=== PATIENT | female | born 1995 | race Caucasian/White ===

== ENCOUNTER 2023-03-26 18:57 | Emergency (ER) | payer MEDICAID, SELFPAY ==
[2023-03-26 19:01] VITALS: BP 178/100; PULSE 106; RESP 22; TEMP 36.7; O2SAT 98; BMI 40.3
[2023-03-26 19:21] VITALS: BP 164/112; PULSE 114; RESP 20; O2SAT 98
[2023-03-26] MEDS: DiphenhydrAMINE 50 MG/ML Syringe IV (20:29)
[2023-03-26 20:31] VITALS: BP 173/110; PULSE 77; RESP 14; O2SAT 98
[2023-03-26 20:37] LABS: ALB/GLOB Ratio 1.1 RATIO (0.9-2.4); AST(SGOT) 9 U/L (15-37); Alanine Aminotransfer ALT/SGPT 15 U/L (13-56); Albumin, Serum 3.7 g/dL (3.2-5.0); Alkaline Phosphatase 65 U/L (45-117); Anion Gap 4 (5-15); BUN 9 mg/dL (7-18); Calcium,Total 8.8 mg/dL (8.5-10.1); Chloride 107 mmol/L (98-107); Creatinine, Serum 0.82 mg/dL (0.55-1.02); EST Glomerular Filtration Rate 88 mL/min (>60); Est Glom Filt Rate - Afr Amer 107 mL/min (>60); Globulin 3.5 g/dL (2.2-4.2); Glucose 130 mg/dL (74-106); Potassium 3.6 mmol/L (3.5-5.1); Protein, Total 7.2 g/dL (6.4-8.2); Sodium Level 137 mmol/L (136-145)
--- NOTE | 2023-03-26 20:46 | EX.ED.DYSGE1 ---
HPI History of Present Illness Chief Complaint: Neuro S/Sx Informant: patient Narrative Narrative: 27-year-old female presenting to the emergency room stating that she is having facial spasms. Patient states for the past year she has had intermittent episodes where her eyes deviate to the right and her jaw gets stuck. She states that she has never received a formal diagnosis. She self diagnosed a stroke a year ago. She states that she is on psychiatric medicines. Communication was had as the patient is writing and handing it to me to read. PFSH PFS Medical History Anxiety Depression Home Medications diphenhydramine HCl 25 mg capsule 25 mg PO TID PRN facial spasm #14 caps 03/26/23 [Rx Last Taken Unknown] Allergy/AdvReac Type Severity Reaction Status Date / Time No Known Allergies Allergy Verified 03/26/23 19:08 Social History Smoking Status: Current every day smoker tobacco type: cigarettes and e-cigarettes ROS ROS ED Constitutional Constitutional ED: Denies chills or weight loss Eyes Eyes: Reports change in vision; Denies diplopia ENT ENT ED: Reports other Details: Facial spasm ; Denies ear pain, rhinorrhea or sore throat Cardiovascular Cardiovascular: Denies chest pain, orthopnea, palpitations or racing heartbeat Respiratory/Chest Respiratory/Chest: Denies cough, dyspnea or orthopnea Gastrointestinal Gastrointestinal: Denies abdominal pain, diarrhea, nausea or vomiting Genitourinary Genitourinary ED: Denies dysuria, hematuria or urinary frequency Musculoskeletal Musculoskeletal: Denies arthralgias or myalgias Integumentary Denies abscess or rash Neurologic Neurologic: Denies headache(s) or weakness Psychiatric Psychiatric: Denies anxiety, depression, suicidal ideation or suicidal thoughts Endocrine Endocrinology: Denies polydipsia, polyphagia or polyuria Allergic/Immunologic Allergic/Immunologic ED: Denies mouth swelling, tongue swelling or urticaria EXAM Physical Exam Const Vital Signs: 03/26/23 19:01 03/26/23 19:21 03/26/23 20:31 Temperature 98.1 F Temperature Source Temporal Pulse Rate 106 H 114 H 77 Respiratory Rate 22 H 20 H 14 Blood Pressure 178/100 H 164/112 H 173/110 H Blood Pressure Mean 126 129 131 Pulse Ox 98 98 98 Oxygen Delivery Method Room Air Room Air Room Air Positive well nourished and well developed General Appearance ED: well developed HEENT Reports normocephalic, head/scalp atraumatic and moist mucous membranes HEENT Narrative: Patient's eyes are deviated to the right. However when I handed her a piece of paper and she starts writing her eyes are normal and she is able to look around the room without difficulty. Her facial is held with her jaw clenched backwards so that she has an overbite. Again as she writes this resolves. I asked her to if she is able to speak she shakes her head no and 30 seconds later is back in the position of her eyes deviated to the right and her jaw clenched. Eyes PERRL and EOMs intact bilaterally Neck no lymphadenopathy, supple and no JVD Resp normal respiratory effort and clear to auscultation bilaterally Cardio regular rate, regular rhythm and no murmurs GI normal to inspection, nondistended, normoactive bowel sounds and non-tender Palpation: soft Back/Spine no CVA tenderness and normal ROM Extremity normal to inspection General Extremety ED: Negative for edema General Extremity: Negative for edema Neuro oriented x3 Sensorium / Orientation: alert Motor Exam: strength 5/5 throughout Psych Psych Narrative: Patient is shaky but can stop on command. Mood & Affect: Negative for depressed or tearful Skin no rashes or lesions noted and no wounds MDM MDM MDM Narrative Medical decision making narrative: CMP demonstrates no obvious electrolyte disturbance. Glucose is 130. Patient received 50 mg of Benadryl. She was observed. Repeat examination she states that she is now fine. She states that oral Benadryl really has never worked for her so she was surprised that IV Benadryl has. She states that she is relocating to [place] and wants to establish primary care. She was advised she may need to see neurology and I would certainly discuss these events with her psychiatrist is conversion disorder certainly is high on the differential. She states that these symptoms were beginning before she started psychiatric medications. History & Record Review Discussion w/independent historian: Patient Lab Data Attestation: I reviewed the patient's lab results. Labs: Laboratory Results - last 24 hr 03/26/23 03/26/23 19:13 19:26 Sodium 137 Potassium 3.6 Chloride 107 Carbon Dioxide 26.0 Anion Gap 4 L BUN 9 Creatinine 0.82 Estim Creat Clear Calc 88.20 Est GFR (MDRD) Af Amer 107 Est GFR (MDRD) Non-Af 88 BUN/Creatinine Ratio 11.0 Glucose 130 H Calcium 8.8 Total Bilirubin 0.20 AST 9 L ALT 15 Alkaline Phosphatase 65 Total Protein 7.2 Albumin 3.7 Globulin 3.5 Albumin/Globulin Ratio 1.1 POC Glucose 124 H Discharge Plan Triage Chief Complaint: Neuro S/Sx ED Provider: Neftaly Velasquez Dx/Rx/DC Orders Clinical Impression: Conversion disorder Instructions: ED Conversion Reaction Prescriptions: New diphenhydramine HCl 25 mg capsule 25 mg PO TID PRN (Reason: facial spasm) Qty: 14 0RF Primary Care Provider: Care Physician,No Primary Referrals: Care Physician,No Primary [Primary Care Provider] - Activity Restrictions/Additional Instructions: Please schedule follow-up appointment with your psychiatrist. As discussed you may wish to see a neurologist. I do not know if you need a prior authorization or referral from primary care. Disposition Disposition: Home, Self Care Discharge Date/Time: 03/26/23 22:39
--- NOTE | 2023-03-26 22:38 | ED.RN ---
Spoke with Natalia Rahman from [facility]; no transportation back to residential facility until midnight 03/27/2023; told to have pt. remain in waiting room unless other transportation established
[2023-03-26 22:50] LABS: Bedside Glucose 124 mg/dL (74-106)
== END 2023-03-26 22:39 | disposition home or self-care (01) ==
PROVIDERS: Emergency Provider Emergency Medicine; Visit Provider Emergency Medicine
DX: F44.4 Conversion disorder with motor symptom or deficit (principal); F17.210 Nicotine dependence, cigarettes, uncomplicated; F17.290 Nicotine dependence, other tobacco product, uncomplicated
CPT/HCPCS: 80053; 82962; 96374; 99285; A4216

== ENCOUNTER 2023-05-07 13:01 | Emergency (ER) | payer MEDICAID, SELFPAY ==
[2023-05-07 13:03] VITALS: BP 131/89; PULSE 97; RESP 14; TEMP 36.2; O2SAT 98; BMI 39.2
--- NOTE | 2023-05-07 13:25 | EX.ED.VIS.PS ---
HPI HPI - Psych History of Present Illness Chief Complaint: Suicidal Informant: patient Narrative Narrative: Patient presents from [facility] secondary to suicidal ideation. She has a history of schizoaffective disorder. She states she has been hearing voices for quite some time, but over the last several days they have been present 24 hours a day. She states they tell her to kill herself so she can go join them. She states right now she feels like she is of sound mind and knows that she cannot act on this, but there are days when she just wants to give up and do what they tell her to do. She has tried to kill herself in the past by cutting her wrist or tried to hang herself. She states she was in and out of psychiatric hospitals mostly in [place] in [place] last year. She is following with a psychiatrist and her psych meds have been adjusted recently secondary to spasms and side effects from the medication. [facility] Medical History Anxiety Depression Schizo affective schizophrenia Home Medications benztropine 2 mg tablet 2 mg PO QHS 05/07/23 [History Last Taken Unknown] benztropine 2 mg tablet 2 mg PO TID 05/07/23 [History Last Taken Unknown] bupropion HCl PO 05/07/23 [History Last Taken Unknown] quetiapine 200 mg tablet (Seroquel) 200 mg PO DAILY 05/07/23 [History Last Taken Unknown] Allergy/AdvReac Type Severity Reaction Status Date / Time No Known Allergies Allergy Verified 05/07/23 13:03 Social History Smoking Status: Current every day smoker tobacco type: cigarettes and e-cigarettes ROS ROS ED Constitutional Constitutional ED: Denies chills or fever(s) Eyes Eyes: Denies change in vision or discharge from eye(s) ENT ENT ED: Denies discharge from eye(s), rhinorrhea or sore throat Cardiovascular Cardiovascular: Denies chest pain or palpitations Respiratory/Chest Respiratory/Chest: Denies cough or dyspnea Gastrointestinal Gastrointestinal: Denies abdominal pain, diarrhea, nausea or vomiting Genitourinary Genitourinary ED: Denies dysuria Musculoskeletal Musculoskeletal: Denies back pain or extremity pain Integumentary Denies Abrasions or rash Neurologic Neurologic: Denies headache(s) or weakness Psychiatric Psychiatric: Reports anxiety, depression and suicidal ideation Endocrine Endocrinology: Denies polydipsia or polyuria Allergic/Immunologic Allergic/Immunologic ED: Denies lip swelling or urticaria EXAM Physical Exam Const Vital Signs: 05/07/23 13:03 05/07/23 14:01 Temperature 97.2 F L Temperature Source Temporal Pulse Rate 97 98 Respiratory Rate 14 18 Blood Pressure 131/89 H Blood Pressure Mean 103 Pulse Ox 98 100 Oxygen Delivery Method Room Air Positive well nourished and well developed General Appearance ED: well developed HEENT Reports moist mucous membranes Eyes EOMs intact bilaterally Resp normal respiratory effort and clear to auscultation bilaterally Cardio Rate: regular rate Rhythm: regular rhythm GI non-tender Extremity normal to inspection Neuro oriented x3 and no sensory deficits noted Motor Exam: strength 5/5 throughout Psych mental status grossly normal, cooperative, affect normal and speech normal Attitude: calm and engaged Speech: normal speech Thought Content: hallucination(s) Positive for auditory Skin Lesions: no lesions Rashes: no rashes MDM MDM MDM Narrative Medical decision making narrative: Workup for psychiatric clearance will be obtained. History & Record Review Additional record(s) reviewed:: Prior ED visit and Prior labs Lab Data Attestation: I reviewed the patient's lab results. Labs: Laboratory Results - last 24 hr 05/07/23 05/07/23 13:40 14:51 WBC 9.5 RBC 4.95 Hgb 15.1 H Hct 44.8 MCV 90.5 MCH 30.5 MCHC 33.7 RDW Std Deviation 39.9 RDW Coeff of Sheldon 12.0 Plt Count 439 MPV 9.2 Immature Gran % (Auto) 0.300 Neut % (Auto) 68.0 Lymph % (Auto) 25.1 [place]ton % (Auto) 3.8 Eos % (Auto) 2.0 Baso % (Auto) 0.8 Absolute Neuts (auto) 6.5 Absolute Lymphs (auto) 2.39 Nucleated RBC % 0 Sodium 137 Potassium 4.0 Chloride 108 H Carbon Dioxide 23.0 Anion Gap 6 BUN 8 Creatinine 0.73 Estim Creat Clear Calc 99.08 Est GFR (MDRD) Af Amer 121 Est GFR (MDRD) Non-Af 100 BUN/Creatinine Ratio 10.9 Glucose 100 Calcium 9.4 Serum , Qual NEGATIVE Urine Opiates Screen NEGATIVE Urine Methadone Screen NEGATIVE Ur Barbiturates Screen NEGATIVE Ur Phencyclidine Scrn NEGATIVE Ur Amphetamines Screen NEGATIVE MDMA (Ecstasy) Screen POSITIVE H U Benzodiazepines Scrn NEGATIVE Urine Cocaine Screen NEGATIVE U Cannabinoids Screen NEGATIVE Ur Drug Screen Comment Ethyl Alcohol < 3.0 Treatment and Re-Evaluation Narrative: CBC was normal white count with a hemoglobin concentrated at 15.1. Chemistry studies unremarkable. test negative. Talk screen positive for MDMA. EtOH less than 3. I spoke with social work who had already spoken with [facility] and [facility] [place]. Given that the patient has had continuous auditory hallucinations and does admit to intermittently wanting to follow the commands of killing herself, I do feel it would be safer to have patient admitted for treatment. They have been adjusting her psychiatric medications as an outpatient recently and I do feel this would be better accomplished in a observed setting. Patient be signed out to oncoming physician while awaiting further evaluation and placement. Discharge Plan Triage Chief Complaint: Suicidal ED Provider: Chioma Starks Dx/Rx/DC Orders Clinical Impression: Suicidal ideation, Auditory hallucinations Prescriptions: No Action benztropine 2 mg tablet 2 mg PO TID benztropine 2 mg tablet 2 mg PO QHS quetiapine [Seroquel] 200 mg tablet 200 mg PO DAILY bupropion HCl [Wellbutrin SR] PO Primary Care Provider: Care Physician,No Primary Referrals: Care Physician,No Primary [Primary Care Provider] - Disposition Disposition: Psychiatric Hospital or Unit
--- NOTE | 2023-05-07 13:40 | ED.RN ---
Per Dr. Starks, no sitter needed at this time.
[2023-05-07 13:56] LABS: Internal QC Validated? YES +Cl - CLEAR BKGD; Pregnancy, Serum, hCG Quali. NEGATIVE Negative
[2023-05-07 13:57] LABS: Absolute Lymphocyte Count 2.39 X10^3/uL (0.83-4.51); Absolute Neutrophil Count 6.5 X10^3/uL (2.0-7.7); Basophil# 0.08 X10^3/uL; Basophil% 0.8 % (0-1); Eosinophil# 0.19 X10^3/uL; Hematocrit 44.8 % (37-47); Hemoglobin 15.1 g/dL (12.0-15.0); Lymphocyte # 2.39 X10^3/ul (0.83-4.51); Lymphocyte % 25.1 % (19-41); Mean Corp Hgb Conc 33.7 g/dL (32-36); Mean Corpuscular Hgb 30.5 pg (27.0-32.0); Mean Corpuscular Volume 90.5 fL (81-99); Mean Platelet Vol. 9.2 fl (6.2-12.0); Monocyte# 0.36 X10^3/uL; Monocyte% 3.8 % (0-10); NRBC Flagged by Analyzer 0 % (0-5); Neutrophil # 6.49 X10^3/uL (2.7-7.7); Platelet Count 439 K/mm3 (150-450); RBC Distribution Width SD 39.9 fl (35.1-43.9); Red Blood Count 4.95 M/mm3 (4.2-5.4); White Blood Count 9.5 K/mm3 (4.4-11.0)
[2023-05-07 14:01] VITALS: PULSE 98; RESP 18; O2SAT 100
--- NOTE | 2023-05-07 14:06 | ED.RN ---
[address] ORTEGA, PT DOES NOT REQUIRE A SITTER AT THIS TIME.
[2023-05-07 14:07] LABS: Anion Gap 6 (5-15); BUN 8 mg/dL (7-18); BUN/Creat Ratio 10.9 RATIO (10-20); Calcium,Total 9.4 mg/dL (8.5-10.1); Chloride 108 mmol/L (98-107); Creatinine, Serum 0.73 mg/dL (0.55-1.02); EST Glomerular Filtration Rate 100 mL/min (>60); Est Glom Filt Rate - Afr Amer 121 mL/min (>60); Estimated Creatinine Clearance 99.08 ml/min; Glucose 100 mg/dL (74-106); Sodium Level 137 mmol/L (136-145)
[2023-05-07 14:21] LABS: Alcohol, Blood (Medical)-Serum < 3.0 mg/dL
--- OUTSIDE RECORDS SUMMARY | 2023-05-07 14:38 | XMS RPT_ITS | CCD ---
Author Name Unknown Address [address] [place] [address] Organization [facility] Care Team Providers Care Procurement Cost Coordinator Name Role Phone LICO WHIPPLE Attending Unavailable NO, PHYSICIAN Primary Care Unavailable No, Physician Primary Care Provider Unavailabl e Corbin Curry MD Unavailable [phone] CARRIE GARSIA Attending Unavailable NO, PHYSICIAN Primary Care Unavailable NO, PHYSICIAN Primary Care Unavailable MARIA ELENA CID Attending Unavailable Joan Aquino Unavailable Unavailable Hermila PACKAGE DRIER, Tabbitha Aurelio Primary Care [facility] ider No, Physician Primary Care Provider Unavailabl e NO, PHYSICIAN Primary Care Unavailable FAILOR NOLA E Attending Unavailable CHIOMA CAMPBELL Attending Unavail able NO, PHYSICIAN Primary Care Unavailable FAILNOLA TORRES Attending Unavailable NO, PHYSICIAN Primary Care Unavailable CHIOMA CAMPBELL Attending Unavail able NO, PHYSICIAN Primary Care Unavailable NO, PHYSICIAN Primary Care Unavailable FAILBRIAN NOLA Sterling Attending Unavailable LAURA BURKETT Attending Unavailable HERMILA, TABBITHA AURELIO Admitting Unava ilable HERMILA, TABBITHA AURELIO Referring Unava ilable HERMILA, TABBITHA AURELIO Primary Care Unava ilable FAILOR NOLA E Attending Unavailable HERMILA, TABBITHA AURELIO Primary Care Unava ilable FAILOR, NOLA E Attending Unavailable NO, PHYSICIAN Primary Care Unavailable CHIOMA CAMPBELL Attending Unavail able NO, PHYSICIAN Primary Care Unavailable CHIOMA CAMPBELL Referring Unavail able FAILBRIAN NOLA Sterling Attending Unavailable NO, PHYSICIAN Primary Care Unavailable CHIOMA CAMPBELL Attending Unavail able NO, PHYSICIAN Primary Care Unavailable NO, PHYSICIAN Primary Care Unavailable FAILNOLA TORRES Attending Unavailable NO, PHYSICIAN Primary Care Unavailable FAILOR, NOLA Sterling Attending Unavailable CAMPBELL, CHIOMA SILAS Attending Unavail able NO, PHYSICIAN Primary Care Unavailable NO, PHYSICIAN Primary Care Unavailable FAILOR, NOLA Katz Attending Unavailable NO, PHYSICIAN Primary Care Unavailable FAILOR, NOLA Katz Attending Unavailable HERMILA, TABBITHA AURELIO Attending Unava ilable HERMILA, TABBITHA AURELIO Primary Care Unava ilable FAILOR, NOLA Katz Attending Unavailable HERMILA, TABBITHA AURELIO Primary Care Unava ilable CHIOMA CAMPBELL Attending Unavail able HERMILA, TABBITHA AURELIO Primary Care Unava ilable FAILOR, NOLA Katz Attending Unavailable HERMILA, TABBITHA AURELIO Primary Care Unava ilable NO, PHYSICIAN Primary Care Unavailable FAILOR, NOLA Katz Attending Unavailable FAILOR, NOLA Katz Attending Unavailable NO, PHYSICIAN Primary Care Unavailable NO, PHYSICIAN Primary Care Unavailable FAILOR, NOLA Katz Attending Unavailable NO, PHYSICIAN Primary Care Unavailable FAILOR, NOLA Katz Attending Unavailable NO, PHYSICIAN Primary Care Unavailable FAILOR, NOLA Katz Attending Unavailable FAILOR, NOLA Katz Attending Unavailable HERMILA, TABBITHA AURELIO Primary Care Unava ilable CHIOMA CAMPBELL Attending Unavail able HERMILA, TABBITHA AURELIO Primary Care Unava ilable FAILOR, NOLA Katz Attending Unavailable HERMILA, TABBITHA AURELIO Primary Care Unava ilable FAILOR, NOLA Katz Attending Unavailable HERMILA, TABBITHA AURELIO Primary Care Unava ilable FAILOR, NOLA Katz Attending Unavailable NO, PHYSICIAN Primary Care Unavailable NO, PHYSICIAN Primary Care Unavailable CHIOMA CMAPBELL Attending Unavail able NO, PHYSICIAN Primary Care Unavailable FAILOR, NOLA Katz Attending Unavailable NO, PHYSICIAN Primary Care Unavailable FAILOR, NOLA Katz Attending Unavailable NO, PHYSICIAN Primary Care Unavailable CHIOMA CAMPBELL Attending Unavail able NO, PHYSICIAN Primary Care Unavailable FAILOR, NOLA Katz Attending Unavailable NO, PHYSICIAN Primary Care Unavailable FAILOR, NOLA Katz Attending Unavailable NO, PHYSICIAN Primary Care Unavailable TREESUSHMA Attending Unavailable TREESUSHMA Attending Unavailable NO, PHYSICIAN Primary Care Unavailable GEHLOT, UPENDER Attending Unavailable GEHLOT, UPENDER Consulting Unavailable GEHLOT, UPENDER Admitting Unavailable NO, PHYSICIAN Primary Care Unavailable RICKY SIMMONS Consulting Unavailable BETHANY AQUINO Attending Unavailable NO, PHYSICIAN Primary Care Unavailable HERMILA, TABBITHA AURELIO Primary Care Unava ilable HERMILA, TROY MENDOZA Referring Unava ilable HERMILA, TROY MENDOZA Attending Unava ilable LAURA BURKETT Referring Unavailable KWADWO, LAURA Attending Unavailable HERMILA, TABBITHA AURELIO Primary Care Unava ilable HERMILA, TABBITHA AURELIO Primary Care Unava ilable NO, PHYSICIAN Primary Care Unavailable NO, PHYSICIAN Primary Care Unavailable NO, PHYSICIAN Primary Care Unavailable BETHANY AQUINO Attending Unavailable ANTHONY DAMIAN Attending Unavailable NO, PHYSICIAN Primary Care Unavailable NO, PHYSICIAN Primary Care Unavailable EGAL, VANCE TOM Attending Unavailabl e EGAL, VANCE TOM Attending Unavailabl e HERMILA, TABBITHA AURELIO Primary Care Unava ilable JAMILAH KELLY Attending Unavailable HERMILA, TABBITHA AURELIO Primary Care Unava ilable NO, PHYSICIAN Primary Care Unavailable TIMOTHY FRANCO Attending Unavailabl e NO, PHYSICIAN Primary Care Unavailable TIMOTHY FRANCO Attending Unavailabl e DANILO FRANCO Attending Unavailable NO, PHYSICIAN Primary Care Unavailable NO, PHYSICIAN Primary Care Unavailable DANILO FRANCO Attending Unavailable LUDWIN EDWARDS Attending Unavailable NO, PHYSICIAN Primary Care Unavailable NO, PHYSICIAN Primary Care Unavailable EMELYN PATEL Attending Unavailable NO, PHYSICIAN Primary Care Unavailable SUSHMA LEAVITT Attending Unavailable NO, PHYSICIAN Primary Care Unavailable JOSEPH BONILLA Attending Unavaila ble Medications Current Medications Medication Drug Class(es) Dates Sig (Normalized) Sig (Original) acetaminophen 325 mg oral tablet (1 source) take 2 tablets by mouth every six hours as needed for pain acetaminophen (TYLENOL) 325 MG tablet Take 2 (two) tablets (650 mg total) by mouth every 6 (six) hours as needed for pain . 0 Active baclofen 20 mg oral tablet (20 sources) gamma-Aminobuty milan Acid-ergic Agonist Start: 09-10-2022 End: 02-15-2023 take 1 tablet by mouth three times daily as needed baclofen (LIORESAL) 20 MG tablet Indications: History of methamphetamine use Take 1 (one) tablet (20 mg total) by mouth 3 (three) times a day as needed For cravings/cramping . 90 tablet 1 12/17/2022 Active Completed/Discontinued Medications Medication Drug Class(es) Dates Sig (Normalized) Sig (Original) lithium carbonate 300 mg oral capsule (15 sources) Start: 06-29-2022 End: 10-10-2022 take 1 capsule by mouth three times daily lithium 300 MG capsule Indications: Schizoaffective disorder, bipolar type (HCC) Take 1 (one) capsule (300 mg total) by mouth 3 (three) times a day . 90 capsule 0 09/10/2022 09/30/2022 Discontinued (Therapy completed) Problems Active Problems Problem Classification Problem Date Documented Date Episodic/Chronic Anxiety disorders (20 sources) Posttraumatic stress disorder; Translations: [Post-traumatic stress disorder, unspecified] Onset: 06-12-2022 Resolved: 07-16-2022 Chronic Cardiac dysrhythmias (7 sources) Intermittent palpitations; Translations: [Palpitations] Onset: 12-16-2022 12-30-2022 Episodic Fluid and electrolyte disorders (2 sources) Hypokalemia; Translations: [Hypokalemia] Onset: 01-30-2023 Episodic Menstrual disorders (2 sources) Irregular menstruation, unspecified; Translations: [Irregular menstruation, unspecified] Onset: 01-02-2022 Chronic Mood disorders (2 sources) Mood disorders; Translations: [Depression, unspecified] Onset: 06-15-2022 Nonspecific chest pain (2 sources) Chest pain, unspecified; Translations: [Chest pain, unspecified] Onset: 11-19-2022 Episodic Nutritional deficiencies (20 sources) Vitamin D deficiency; Translations: [Vitamin D deficiency, unspecified] Onset: 09-30-2022 09-30-2022 Chronic Other aftercare (2 sources) Patient encounter status; Translations: [Encounter for therapeutic drug level monitoring] Episodic Other nutritional; endocrine; and metabolic disorders (1 source) Body mass index 30+ - obesity; Translations: [Obesity, unspecified] 07-30-2022 Chronic Other nutritional; endocrine; and metabolic disorders (5 sources) Obesity; Translations: [Other obesity due to excess calories] Onset: 12-15-2022 12-15-2022 Chronic Other nutritional; endocrine; and metabolic disorders (8 sources) Obesity caused by energy imbalance; Translations: [Other obesity due to excess calories] Onset: 12-15-2022 12-15-2022 Chronic Other nutritional; endocrine; and metabolic disorders (4 sources) Other obesity due to excess calories; Translations: [Other obesity due to excess calories] Onset: 12-15-2022 Chronic Other nutritional; endocrine; and metabolic disorders (4 sources) Body mass index (BMI) 38.0-38.9, adult; Translations: [Body mass index (BMI) 38.0-38.9, adult] Onset: 12-15-2022 Chronic Other nutritional; endocrine; and metabolic disorders (2 sources) Obesity, unspecified; Translations: [Obesity, unspecified] Onset: 07-30-2022 Chronic Other nutritional; endocrine; and metabolic disorders (4 sources) Abnormal weight gain; Translations: [Abnormal weight gain] Onset: 12-15-2022 Episodic Other screening for suspected conditions (not mental disorders or infectious disease) (4 sources) Other specified abnormal findings of blood chemistry; Translations: [Other specified abnormal findings of blood chemistry] Onset: 12-15-2022 Episodic Residual codes; unclassified (1 source) Noncompliance with medication regimen; Translations: [Patient's other noncompliance with medication regimen] Episodic Schizophrenia and other psychotic disorders (20 sources) Schizoaffective disorder, bipolar type; Translations: [Schizoaffective disorder, bipolar type] Onset: 05-28-2022 Chronic Substance-related disorders (20 sources) Polysubstance abuse ; Translations: [Other psychoactive substance abuse, uncomplicated] Onset: 02-20-2022 Chronic Syncope (2 sources) Syncope and collapse; Translations: [Syncope and collapse] Onset: 11-19-2022 Episodic Unclassified (1 source) Other stimulant use, unspecified, in remission; Translations: [Other stimulant use, unspecified, in remission] Onset: 09-10-2022 Unclassified (1 source) Homelessness unspecified; Translations: [Homelessness unspecified] Onset: 07-06-2022 Past or Other Problems Problem Classification Problem Date Documented Date Episodic/Chronic Administrative/social admission (20 sources) Homeless; Translations: [Homelessness] Onset: 03-30-2022 07-06-2022 Episodic Mood disorders (20 sources) Severe mixed bipolar I disorder; Translations: [Bipolar disorder, current episode mixed, severe, without psychotic features] Onset: 08-15-2021 Resolved: 07-16-2022 Chronic Other aftercare (20 sources) Long-term current use of 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; Translations: [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] Onset: 07-30-2022 07-30-2022 Episodic Other aftercare (4 sources) Other long-term (current) drug therapy; Translations: [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] Onset: 07-30-2022 Episodic Other aftercare (4 sources) Encounter for therapeutic drug level monitoring; Translations: [Encounter for therapeutic drug level monitoring] Onset: 07-16-2022 Episodic Other injuries and conditions due to external causes (2 sources) Unspecified injury of head, subsequent encounter; Translations: [Unspecified injury of head, subsequent encounter] Onset: 01-02-2022 Episodic Residual codes; unclassified (2 sources) Other amnesia; Translations: [Other amnesia] Onset: 01-02-2022 Episodic Residual codes; unclassified (2 sources) Patient's other noncompliance with medication regimen; Translations: [Patient's other noncompliance with medication regimen] Onset: 07-06-2022 Episodic Residual codes; unclassified (2 sources) Auditory hallucinations; Translations: [Auditory hallucinations] Onset: 05-28-2022 Episodic Schizophrenia and other psychotic disorders (20 sources) Brief psychotic disorder; Translations: [Unspecified psychosis] Onset: 08-15-2021 Resolved: 07-16-2022 01-02-2022 Episodic Substance-related disorders (20 sources) Stimulant abuse; Translations: [Other stimulant use, unspecified, uncomplicated] Onset: 08-14-2021 07-06-2022 Episodic Suicide and intentional self-inflicted injury (20 sources) Suicidal thoughts; Translations: [Suicidal ideations] Onset: 01-26-2022 06-25-2022 Episodic Unclassified (1 source) Other stimulant use, unspecified, in remission; Translations: [Other stimulant use, unspecified, in remission] Onset: 09-30-2022 Unclassified (1 source) Homelessness unspecified; Translations: [Homelessness unspecified] Onset: 07-02-2022 Urinary tract infections (4 sources) Urinary tract infection, site not specified; Translations: [Urinary tract infection, site not specified] Onset: 01-02-2022 Episodic Results Test Name Value Interpretation Reference Range Facil ity Vital Signs Date Time Vital Sign Value Performing Clinician Faci lity 01-14-2023 13:33-0400 Body height 162.6 cm Chiomarush Ann CHAMFERING MACHINE OPERATOR Work Phone: [facility] 01-14-2023 13:33-0400 Body mass index (BMI) [Ratio] 40.68 kg/m2 Chioma Yoly PACKAGE DRIER Work Phone: [facility] 01-14-2023 13:33-0400 Body weight 107.5 kg Chioma Ann CHAMFERING MACHINE OPERATOR Work Phone: [facility] 01-14-2023 13:33-0400 Diastolic blood pressure 76 mm[Hg] Chioma Yoly PACKAGE DRIER Work Phone: [facility] 01-14-2023 13:33-0400 Heart rate 106 /min Chioma Ann CHAMFERING MACHINE OPERATOR Work Phone: [facility] 01-14-2023 13:33-0400 Respiratory rate 16 /min Chioma Ann CHAMFERING MACHINE OPERATOR Work Phone: [facility] 01-14-2023 13:33-0400 SaO2% (BldA) [Mass fraction] 97 % Chioma Yoly PACKAGE DRIER Work Phone: [facility] 01-14-2023 13:33-0400 Systolic blood pressure 112 mm[Hg] Chioma ornelas PACKAGE DRIER Work Phone: [facility] 12-30-2022 10:29-0400 Body height 162.6 cm Laura Burkett MD Work Phone: [facility] 12-30-2022 10:29-0400 Body mass index (BMI) [Ratio] 38.79 kg/m2 Laura Burkett MD Work Phone: [facility] 12-30-2022 10:29-0400 Body weight 102.51 kg Laura Burkett MD Work Phone: [facility] 12-30-2022 10:29-0400 Diastolic blood pressure 74 mm[Hg] Laura Burkett MD Work Phone: [facility] 12-30-2022 10:29-0400 Heart rate 108 /min Laura Burkett MD Work Phone: [facility] 12-30-2022 10:29-0400 SaO2% (BldA) [Mass fraction] 97 % Laura Burkett MD Work Phone: [facility] 12-30-2022 10:29-0400 Systolic blood pressure 107 mm[Hg] Laura Burkett MD Work Phone: [facility] 12-17-2022 15:08-0400 Body height 162.6 cm Chioma Ann CHAMFERING MACHINE OPERATOR Work Phone: [facility] 12-17-2022 15:08-0400 Body mass index (BMI) [Ratio] 38.62 kg/m2 Chioma Campbell PACKAGE DRIER Work Phone: [facility] 12-17-2022 15:08-0400 Body weight 102.06 kg Chioma Ann CHAMFERING MACHINE OPERATOR Work Phone: [facility] 12-17-2022 15:08-0400 Diastolic blood pressure 85 mm[Hg] Chioma Campbell PACKAGE DRIER Work Phone: [facility] 12-17-2022 15:08-0400 Heart rate 89 /min Chioma Ann CHAMFERING MACHINE OPERATOR Work Phone: [facility] 12-17-2022 15:08-0400 SaO2% (BldA) [Mass fraction] 97 % Chioma Campbell PACKAGE DRIER Work Phone: [facility] 12-17-2022 15:08-0400 Systolic blood pressure 124 mm[Hg] Chioma ornelas PACKAGE DRIER Work Phone: [facility] 11-26-2022 15:09-0400 Body height 162.6 cm Chioma Ann CHAMFERING MACHINE OPERATOR Work Phone: [facility] 11-26-2022 15:09-0400 Body mass index (BMI) [Ratio] 37.56 kg/m2 Chioma Campbell PACKAGE DRIER Work Phone: [facility] 11-26-2022 15:09-0400 Body weight 99.25 kg Chioma Ann CHAMFERING MACHINE OPERATOR Work Phone: [facility] 11-26-2022 15:09-0400 Diastolic blood pressure 87 mm[Hg] Chioma Yoly PACKAGE DRIER Work Phone: [facility] 11-26-2022 15:09-0400 Heart rate 94 /min Chioma Campbell C CHAMFERING MACHINE OPERATOR Work Phone: [facility] 11-26-2022 15:09-0400 SaO2% (BldA) [Mass fraction] 98 % Chioma Yoly PACKAGE DRIER Work Phone: [facility] 11-26-2022 15:09-0400 Systolic blood pressure 120 mm[Hg] Chioma Horn er PACKAGE DRIER Work Phone: [facility] 09-30-2022 13:26-0400 Body height 162.6 cm Chioma Campbell C CHAMFERING MACHINE OPERATOR Work Phone: [facility] 09-30-2022 13:26-0400 Body mass index (BMI) [Ratio] 35.22 kg/m2 Chioma Yoly PACKAGE DRIER Work Phone: [facility] 09-30-2022 13:26-0400 Body weight 93.08 kg Chioma Yoly C CHAMFERING MACHINE OPERATOR Work Phone: [facility] 09-30-2022 13:26-0400 Diastolic blood pressure 85 mm[Hg] Chioma Yoly PACKAGE DRIER Work Phone: [facility] 09-30-2022 13:26-0400 Heart rate 107 /min Chioma Campbell C CHAMFERING MACHINE OPERATOR Work Phone: [facility] 09-30-2022 13:26-0400 Respiratory rate 16 /min Chioma Campbell C CHAMFERING MACHINE OPERATOR Work Phone: [facility] 09-30-2022 13:26-0400 SaO2% (BldA) [Mass fraction] 97 % Chioma Yoly PACKAGE DRIER Work Phone: [facility] 09-30-2022 13:26-0400 Systolic blood pressure 132 mm[Hg] Chioma Horn er PACKAGE DRIER Work Phone: [facility] 09-10-2022 14:35-0400 Body height 162.6 cm Chioma Ann CHAMFERING MACHINE OPERATOR Work Phone: [facility] 09-10-2022 14:35-0400 Body mass index (BMI) [Ratio] 35.36 kg/m2 Chioma Yoly PACKAGE DRIER Work Phone: [facility] 09-10-2022 14:35-0400 Body weight 93.44 kg Chioma Ann CHAMFERING MACHINE OPERATOR Work Phone: [facility] 09-10-2022 14:35-0400 Diastolic blood pressure 82 mm[Hg] Chioma Yoly PACKAGE DRIER Work Phone: [facility] 09-10-2022 14:35-0400 Heart rate 97 /min Chioma Ann CHAMFERING MACHINE OPERATOR Work Phone: [facility] 09-10-2022 14:35-0400 SaO2% (BldA) [Mass fraction] 96 % Chioma Yoly PACKAGE DRIER Work Phone: [facility] 09-10-2022 14:35-0400 Systolic blood pressure 115 mm[Hg] Chioma ornelas PACKAGE DRIER Work Phone: [facility] 09-10-2022 14:15-0400 Body height 162.6 cm Nola Failor SUPERVISOR CEREAL[employer] [facility] 09-10-2022 14:15-0400 Body mass index (BMI) [Ratio] 35.48 kg/m2 Nola Failor SUPERVISOR [employer]AL[employer] [facility] 09-10-2022 14:15-0400 Body weight 93.76 kg Nola Failor SUPERVISOR [employer] [facility] 09-10-2022 14:15-0400 Diastolic blood pressure 82 mm[Hg] Nola Failor SUPERVISOR [employer]AL[employer] [facility] 09-10-2022 14:15-0400 Heart rate 97 /min Nola Failor SUPERVISOR [employer] [facility] 09-10-2022 14:15-0400 SaO2% (BldA) [Mass fraction] 96 % Nola Failor SUPERVISOR [employer] [facility] 09-10-2022 14:15-0400 Systolic blood pressure 115 mm[Hg] Nola Failor SUPERVISOR [employer] [facility] 07-30-2022 08:53-0400 Body height 162.6 cm Chioma Ann CHAMFERING MACHINE OPERATOR Work Phone: [facility] 07-30-2022 08:53-0400 Body mass index (BMI) [Ratio] 33.47 kg/m2 Chioma Campbell PACKAGE DRIER Work Phone: [facility] 07-30-2022 08:53-0400 Body weight 88.45 kg Chioma Ann CHAMFERING MACHINE OPERATOR Work Phone: [facility] 07-30-2022 08:53-0400 Diastolic blood pressure 82 mm[Hg] Chioma Campbell PACKAGE DRIER Work Phone: [facility] 07-30-2022 08:53-0400 Heart rate 113 /min Chioma Ann CHAMFERING MACHINE OPERATOR Work Phone: [facility] 07-30-2022 08:53-0400 Respiratory rate 16 /min Chioma Ann CHAMFERING MACHINE OPERATOR Work Phone: [facility] 07-30-2022 08:53-0400 SaO2% (BldA) [Mass fraction] 98 % Chioma Campbell PACKAGE DRIER Work Phone: [facility] 07-30-2022 08:53-0400 Systolic blood pressure 123 mm[Hg] Chioma ornelas PACKAGE DRIER Work Phone: [facility] 07-16-2022 08:39-0400 Body height 162.6 cm Chioma Ann CHAMFERING MACHINE OPERATOR Work Phone: [facility] 07-16-2022 08:39-0400 Diastolic blood pressure 75 mm[Hg] Chioma Campbell PACKAGE DRIER Work Phone: [facility] 07-16-2022 08:39-0400 Heart rate 126 /min Chioma Ann CHAMFERING MACHINE OPERATOR Work Phone: [facility] 07-16-2022 08:39-0400 Respiratory rate 16 /min Chioma Ann CHAMFERING MACHINE OPERATOR Work Phone: [facility] 07-16-2022 08:39-0400 SaO2% (BldA) [Mass fraction] 97 % Chioma Campbell PACKAGE DRIER Work Phone: [facility] 07-16-2022 08:39-0400 Systolic blood pressure 121 mm[Hg] Chioma Horn er PACKAGE DRIER Work Phone: [facility] 07-09-2022 10:12-0500 Body height 162.6 cm Chioma Ann CHAMFERING MACHINE OPERATOR Work Phone: [facility] 07-09-2022 10:12-0500 Body mass index (BMI) [Ratio] 29.18 kg/m2 Chioma Campbell PACKAGE DRIER Work Phone: [facility] 07-09-2022 10:12-0500 Body weight 77.11 kg Chioma Ann CHAMFERING MACHINE OPERATOR Work Phone: [facility] 07-09-2022 10:12-0500 Diastolic blood pressure 87 mm[Hg] Chioma Campbell PACKAGE DRIER Work Phone: [facility] 07-09-2022 10:12-0500 Heart rate 98 /min Chioma Campbell C CHAMFERING MACHINE OPERATOR Work Phone: [facility] 07-09-2022 10:12-0500 Respiratory rate 16 /min Chioma Ann CHAMFERING MACHINE OPERATOR Work Phone: [facility] 07-09-2022 10:12-0500 SaO2% (BldA) [Mass fraction] 98 % Chioma Campbell PACKAGE DRIER Work Phone: [facility] 07-09-2022 10:12-0500 Systolic blood pressure 131 mm[Hg] Chioma Horn er PACKAGE DRIER Work Phone: [facility] Encounters Encounter Date Encounter Type Care Provider Facility Start: 02-06-2023 Refill Chioma Capmbell PACKAGE DRIER Work Phone: [facility] Plan of Treatment Date Care Activity Detail Author Start: 12-16-2023 Hepatitis C screening Hepatitis C Sc [facility] Payers Date Payer Category Payer Medicaid [id number] 2021 Medicaid [id number] 2021 Medicaid [id number] 1994 Unknown [id number] 2.16. [id number] 1994 Unknown [id number] 2.16. [id number] 1994 Unknown [id number] 2.16. [id number] 1994 Unknown [id number] 2.16. 840.1.691573.3.579.2 1994 Unknown [id number] 2.16 [id number] 1994 Unknown [id number] 2.16 840.1.464390.3.579.2 1994 Unknown [id number] 2.16 840.1.692692.3.579.2 1994 Unknown [id number] 2.16 840.1.529662.3.579.2 1994 Unknown [id number] 2.16 840.1.968758.3.579.2 1994 Unknown [id number] 2.16 840.1.961657.3.579.2 1994 Unknown [id number] 2.16 840.1.888405.3.579.2 1994 Unknown [id number] 2.16. 840.1.017163.3.579.2 1994 Unknown [id number] 2.16 840.1.407907.3.579.2 1994 Unknown [id number] 2.16 840.1.305589.3.579.2 1994 Unknown [id number] 2.16. 840.1.359646.3.579.2. 1994 Unknown [id number] 2.16. 840.1.181051.3.579.2 1994 Unknown [id number] 2.16. 840.1.761918.3.579.2. 1994 Unknown [id number] 2.16. 840.1.916412.3.579.2 1994 Unknown [id number] 2.16. 840.1.253691.3.579.2 1994 Unknown [id number] 2.16. 840.1.137461.3.579.2 1994 Unknown [id number] 2.16. 840.1.691308.3.579.2 1994 Unknown [id number] 2.16 840.1.612063.3.579.2 1994 Unknown [id number] 2.16 840.1.239113.3.579.2 1994 Unknown [id number] 2.16 840.1.237031.3.579.2 1994 Unknown [id number] 2.16. 840.1.646111.3.579.2 1994 Unknown [id number] 2.16 840.1.759135.3.579.2 1994 Unknown [id number] 2.16. 840.1.390424.3.579.2 1994 Unknown [id number] 2.16 840.1.454710.3.579.2 1994 Unknown [id number] 2.16. 840.1.349307.3.579.2 1994 Unknown [id number] 2.16 840.1.738410.3.579.2 1994 Unknown [id number] 2.16. 840.1.521702.3.579.2.903 1994 Unknown [id number] 2.16. 840.1.190962.3.579.2. 1994 Unknown [id number] 2.16. 840.1.676774.3.579.2. 1994 Unknown [id number] 2.16. 840.1.303637.3.579.2. 1994 Unknown [id number] 2.16. 840.1.536732.3.579.2. 1994 Unknown [id number] 2.16. 840.1.250545.3.579.2 1994 Unknown [id number] 2.16. 840.1.039804.3.579.2. 1994 Unknown [id number] 2.16. 840.1.368183.3.579.2 1994 Unknown [id number] 2.16. 840.1.565636.3.579.2. 1994 Unknown [id number] 2.16. 840.1.252528.3.579.2 1994 Unknown [id number] 2.16. 840.1.879443.3.579.2. 1994 Unknown [id number] 2.16. 840.1.459412.3.579.2 1994 Unknown [id number] 2.16. 840.1.190077.3.579.2. 1994 Unknown [id number] 2.16. 840.1.106456.3.579.2 1994 Unknown [id number] 2.16. 840.1.003427.3.579.2. 1994 Unknown [id number] 2.16. 840.1.758663.3.579.2.903 1994 Unknown [id number] 2.16. 840.1.242029.3.579.2.903 1994 Unknown [id number] 2.16. 840.1.529332.3.579.2.903 1994 Unknown [id number] 2.16. 840.1.975360.3.579.2.903 1994 Unknown [id number] 2.16. 840.1.189440.3.579.2.903 1994 Unknown [id number] 2.16. 840.1.433481.3.579.2.903 1994 Unknown [id number] 2.16. 840.1.538197.3.579.2.903 1994 Unknown [id number] 2.16. 840.1.698462.3.579.2.90 1994 Unknown [id number] 2.16. 840.1.721145.3.579.2.903 1994 Unknown [id number] 2.16 840.1.951484.3.579.2.903 1994 Unknown [id number] 2.16. 840.1.031491.3.579.2.903 1994 Unknown [id number] 2.16 840.1.331648.3.579.2.90 1994 Unknown [id number] 2.16 840.1.611366.3.579.2.903 1994 Unknown [id number] 2.16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 identified and problem solved barriers. Continue providing weekly individual psychotherapy, take medications as prescribed and attend all follow-ups. Frequency and duration of psychotherapy will be continuously assessed for efficacy and adjusted as indicated. CLIENT RESPONSE/EVALUATION The client was engaged, remains motivated to participate in treatment, and made progress today. INTERACTIVE COMPLEXITY 5. None REVIEW WITH PATIENT: Client educated on working diagnosis and treatment plan. The client participated in the development and review of the ITP using shared decision making and other client centered practices and principles. RECOMMENDATIONS: -Continue medication as prescribed. Please report any side effects or intolerability of the medication. Report any new or worsening symptoms. -Physical health: Maintain good physical health through exercise, adequate sleep, hydration, and well balanced meals. Avoid drug use, excess alcohol consumption, and use of nicotine. -Mental Health: Talk about your mental health with mental health professional or a supportive person or people in your life. Work on social connections and interacting with others. -Relaxation: Maintain a peaceful mind through relaxation techniques such as, meditation, mindfulness, yoga, stretching, sitting quietly for a moment, and deep breathing exercises. -Stay positive: Try to identify one positive thing every day; a smile from someone, a great cup of coffee, a funny video, a pet, and be grateful for that thing. Remember that one negative event does not ruin the day, it's merely a negative moment in a series of many moments throughout the day. -Screen time/social media: Please try to limit your screen time of the phone, TV, or computer. Excessive or prolonged socia media can impact your mental health negatively. -Spend time outdoors when possible. [place] has natural mood boosting qualities and may help decrease feelings of anxiety, stress, and depression. CRISIS MANAGEMENT/SAFETY: Resources provided: Suicide Prevention ([facility]) Hotline 4-919-385-OQLL Mental Health Emergency dial 988 Emergency dial 911 Crisis Line [facility] [phone] IGOR Gallardo documented in this encounter [facility] 12-31-2022 History of Presen t illness Narrative Patient Name: Alyce Orozco MR #: [id number] : 1995 DATE OF SERVICE: 12/31/22 START TIME: 2:15pm END TIME: 3:11pm TIME SPENT: 56 minutes spent with patient in face to face, individual session. DIAGNOSIS ICD-10-CM ICD-9-CM 1. Schizoaffective disorder, bipolar type (HCC) F25.0 295.70 2. Post traumatic stress disorder (PTSD) F43.10 309.81 DATA Grooming & Hygiene: well groomed and casually dressed General Behavior: pleasant & cooperative Psychomotor Activity: no psychomotor abnormalities Speech: talkative and soft Flow to Thought: logical & goal directed Thought Associations: logical connections Content of Thought: normal Mood: ok Affect: normal affect Insight: fair Judgment: fair Orientation: alert and oriented to person, place, time Memory: intact Attention / Concentration: intact The patient remains motivated to complete the program at [facility] and move out. She is frustrated there as she would like access to more treatment options, such as AA and regular [facility] treatment. She wants to get another job and save up for her own apartment. The patient brought in the journal that she started working on. She reports that she has cut off ties with her ex too. She said she is ok about this. Continued examining mood patterns, relationship patterns, and coping skills - both maladaptive and productive. Patient is medication compliant. Denies SI. ASSESSMENT The client remains invested in recovery, completing [facility] treatment and Drug Court, and moving into her own place. She is also invested in her mental health treatment. She is insightful and is a good communicator, all strengths that will continue to support her progress in treatment. TREATMENT AND PLAN Provided active listening, psycho-education, techniques from DBT and CA, identified and reinforced success, and identified and problem solved barriers. Continue providing weekly individual psychotherapy, take medications as prescribed and attend all follow-ups. Frequency and duration of psychotherapy will be continuously assessed for efficacy and adjusted as indicated. CLIENT RESPONSE/EVALUATION Although the client was still somewhat deflated today there was good progress made in session. The client was invested and fully engaged. INTERACTIVE COMPLEXITY 5. None REVIEW WITH PATIENT: Client educated on working diagnosis and treatment plan. The client participated in the development and review of the ITP using shared decision making and other client centered practices and principles. RECOMMENDATIONS: -Continue medication as prescribed. Please report any side effects or intolerability of the medication. Report any new or worsening symptoms. -Physical health: Maintain good physical health through exercise, adequate sleep, hydration, and well balanced meals. Avoid drug use, excess alcohol consumption, and use of nicotine. -Mental Health: Talk about your mental health with mental health professional or a supportive person or people in your life. Work on social connections and interacting with others. -Relaxation: Maintain a peaceful mind through relaxation techniques such as, meditation, mindfulness, yoga, stretching, sitting quietly for a moment, and deep breathing exercises. -Stay positive: Try to identify one positive thing every day; a smile from someone, a great cup of coffee, a funny video, a pet, and be grateful for that thing. Remember that one negative event does not ruin the day, it's merely a negative moment in a series of many moments throughout the day. -Screen time/social media: Please try to limit your screen time of the phone, TV, or computer. Excessive or prolonged socia media can impact your mental health negatively. -Spend time outdoors when possible. [place] has natural mood boosting qualities and may help decrease feelings of anxiety, stress, and depression. CRISIS MANAGEMENT/SAFETY: Resources provided: Suicide Prevention ([facility]) Hotline 0-850-246-USHH Mental Health Emergency dial 988 Emergency dial 911 Crisis Line [facility] [phone] IGOR Gallardo documented in this encounter [facility] 12-30-2022 Instructions Hyacinth Nicole RN - 12/30/2022 10:47 AM EDT THANK YOU FOR VISITING [facility]. IF YOU HAVE A QUESTION PLEASE CALL [phone]. CARDIAC STRESS TEST You are scheduled to have a standard exercise stress test on at . This is a monitored test on a treadmill at various work levels of increasing difficulty. During and after the test, your heart rate, blood pressure, electrocardiogram and clinical symptoms are carefully observed. This data provides information on the status of your heart, blood pressure and physical fitness. The total time required to complete the test is 45 minutes to one hour. NOTHING TO EAT OR DRINK 2 HOURS PRIOR TO APPOINTMENT TIME. Specifically, DO NOT drink coffee or carbonated beverages that contain caffeine including drinks labeled decaffeinated. Drinks containing caffeine can artificially raise your heart rate. Tobacco should be avoided 4 hours prior to procedure. Wear loose fitting clothes and comfortable shoes for exercise. Gym shorts would be appropriate. Medications: You may take all of your medications prior to your procedure. Please bring a list of your current medications with you. If you have any further questions, please contact your care team or call our office at [phone]. documented in this encounter [facility] 12-30-2022 History of Presen t illness Narrative OFFICE CONSULTATION NOTE [facility] [address]) [facility] [address] [facility] [id number] Physicians: Troy Jones, P[employer]RIER (Family); Troy Jones* (Referring) Subjective: Alyce Orozco is a 27 y.o. female seen in the office today for Establish Care (Per Troy Carlton for palpitations/s/p ED in October) . HPI patient has been having some episodes of chest pains of a sharp nature centrally located of short nature worse with taking a deep breath not related to anything particular such as exertion or emotional arousal eating she has schizoaffective disorder manic depressive disorder Assessment/Plan she apparently has a Holter pending we will also perform a treadmill if negative she can be reassured ECG: Sinus tachycardia Rightward axis Borderline Reviewed personally No problem-specific Assessment & Plan notes found for this encounter. Follow Up Ordered: No follow-ups on file. Patient's Medications New Prescriptions No medications on file Previous Medications BACLOFEN (LIORESAL) 20 MG TABLET Take 1 (one) tablet (20 mg total) by mouth 3 (three) times a day as needed For cravings/cramping . ERGOCALCIFEROL (ERGOCALCIFEROL) 1,250 MCG (50,000 UNIT) CAPSULE Take 1 (one) capsule (50,000 Units total) by mouth once a week . PRAZOSIN (MINIPRESS) 2 MG CAPSULE Take 2 (two) capsules (4 mg total) by mouth nightly . QUETIAPINE (SEROQUEL XR) 200 MG 24 HR TABLET Take 1 (one) tablet (200 mg total) by mouth nightly . QUETIAPINE (SEROQUEL XR) 400 MG 24 HR TABLET Take 1 (one) tablet (400 mg total) by mouth nightly . Modified Medications No medications on file Discontinued Medications No medications on file Histories: Past Medical History: Diagnosis Date Anxiety Arthritis Bipolar 1 disorder (HCC) Depression Schizophrenia ([facility]) History reviewed. No pertinent surgical history. Family History Problem Relation Age of Onset Hypertension Father Social History Tobacco Use Smoking status: Every Day Types: Cigarettes Smokeless tobacco: Never Tobacco comments: Smokes 2 cigarettes daily noted on 12/30/22 Vaping Use Vaping Use: Every day Substances: Nicotine Substance Use Topics Alcohol use: Not Currently Drug use: Not Currently Types: Methamphetamines, Marijuana Comment: ONCE A MONTH, LAST WEEK No Known Allergies Review of Systems Constitutional: Negative. HENT: Negative. Eyes: Negative. Cardiovascular: Positive for near-syncope and palpitations. Respiratory: Negative. Endocrine: Negative. Skin: Negative. Musculoskeletal: Negative. Gastrointestinal: Negative. Genitourinary: Negative. Neurological: Negative. Psychiatric/Behavioral: Negative. All other systems reviewed and are negative. Overview of Problems Addressed: No problems updated. Objective: Vitals: BP 107/74 (BP Location: Left arm) Pulse (!) 108 Ht 5' 4 Wt 102.5 kg (226 lb) LMP 12/14/2022 (Exact Date) SpO2 97% BMI 38.79 kg/m Physical Exam Constitutional: Appearance: Normal appearance. HENT: Head: Normocephalic and atraumatic. Nose: Nose normal. Eyes: Extraocular Movements: Extraocular movements intact. Pupils: Pupils are equal, round, and reactive to light. Cardiovascular: Rate and Rhythm: Normal rate and regular rhythm. Pulses: Normal pulses. Heart sounds: Normal heart sounds. Pulmonary: Effort: Pulmonary effort is normal. Breath sounds: Normal breath sounds. Abdominal: General: Abdomen is flat. Bowel sounds are normal. Palpations: Abdomen is soft. Musculoskeletal: General: Normal range of motion. Cervical back: Normal range of motion and neck supple. Skin: General: Skin is warm and dry. Neurological: General: No focal deficit present. Mental Status: She is alert and oriented to person, place, and time. Mental status is at baseline. Psychiatric: Mood and Affect: Mood normal. Thought Content: Thought content normal. Judgment: Judgment normal. 1. Intermittent palpitations Laura Burkett MD 12/30/2022 Review of Systems Cardiovascular: Positive for palpitations and syncope. All other systems reviewed and are negative. documented in this encounter [facility] 12-24-2022 History of Presen t illness Narrative Patient Name: Alyce Orozco MR #: [id number] : 1995 DATE OF SERVICE: 12/24/22 START TIME: 2:04pm END TIME: 3:07pm TIME SPENT: 63 minutes spent with patient in face to face, individual session. DIAGNOSIS ICD-10-CM ICD-9-CM 1. Schizoaffective disorder, bipolar type (HCC) F25.0 295.70 2. Post traumatic stress disorder (PTSD) F43.10 309.81 3. History of methamphetamine use F15.91 305.93 DATA Grooming & Hygiene: well groomed and neat General Behavior: pleasant & cooperative Psychomotor Activity: no psychomotor abnormalities Speech: talkative and normal Flow to Thought: logical & goal directed Thought Associations: logical connections Content of Thought: normal Mood: Ok, blase (flat) Affect: flat affect Insight: intact Judgment: fair Orientation: alert and oriented to person, place, time Memory: intact Attention / Concentration: intact The client reports that she is feeling deflated today. She had drug court today. She was given information for the program and placed on an ankle monitor. She has met her drug court PO. The client's drug court program is 18months long. She is required to stay at [facility] until she finishes [facility] program and then she will be permitted by probation to move into her own apartment. She continues to pursue disability. The client shared today that the longer she is sober she is recognizing patterns in her moods and psychosis. The client is going to track her mental health in a journal starting sometime this week - she needs to purchase a journal. The client plans to cut off all ties to her ex-boyfriend, Perry, when she gets her phone back this week. She reports that this is the first thing she plans to do. Discussed some of client's childhood, and sudden random memories that she has been having. Things she has not thought about or remembered for years. ASSESSMENT The client is invested in recovery, completing [facility] treatment and [facility], and moving into her own place. She is also invested in her mental health treatment. She is insightful and is a good communicator, all strengths that will continue to support her progress in treatment. TREATMENT AND PLAN Provided active listening, psycho-education, techniques from DBT and CA, identified and reinforced success, and identified and problem solved barriers. Continue providing weekly individual psychotherapy, take medications as prescribed and attend all follow-ups. Frequency and duration of psychotherapy will be continuously assessed for efficacy and adjusted as indicated. CLIENT RESPONSE/EVALUATION Although the client was somewhat deflated today there was good progress made in session. The client was invested and fully engaged. INTERACTIVE COMPLEXITY 5. None REVIEW WITH PATIENT: Client educated on working diagnosis and treatment plan. The client participated in the development and review of the ITP using shared decision making and other client centered practices and principles. RECOMMENDATIONS: -Continue medication as prescribed. Please report any side effects or intolerability of the medication. Report any new or worsening symptoms. -Physical health: Maintain good physical health through exercise, adequate sleep, hydration, and well balanced meals. Avoid drug use, excess alcohol consumption, and use of nicotine. -Mental Health: Talk about your mental health with mental health professional or a supportive person or people in your life. Work on social connections and interacting with others. -Relaxation: Maintain a peaceful mind through relaxation techniques such as, meditation, mindfulness, yoga, stretching, sitting quietly for a moment, and deep breathing exercises. -Stay positive: Try to identify one positive thing every day; a smile from someone, a great cup of coffee, a funny video, a pet, and be grateful for that thing. Remember that one negative event does not ruin the day, it's merely a negative moment in a series of many moments throughout the day. -Screen time/social media: Please try to limit your screen time of the phone, TV, or computer. Excessive or prolonged socia media can impact your mental health negatively. -Spend time outdoors when possible. [place] has natural mood boosting qualities and may help decrease feelings of anxiety, stress, and depression. CRISIS MANAGEMENT/SAFETY: Resources provided: Suicide Prevention (national) Hotline 3-441-349-HXFO Mental Health Emergency dial 988 Emergency dial 911 Crisis Line ([facility]) [phone] IGOR Gallardo documented in this encounter [facility] 12-17-2022 History of Presen t illness Narrative Behavioral Health Outpatient Progress Note Patient Name: Alyce Orozco MR #: [id number] : 1995 Chief Complaint: Medication and symptom review/management Interval History: 12/17/2022 Patient presents for follow up exam. Last seen on 11-26-22 and continues to take an increased dose of Seroquel and Prazosin, and Baclofen. Still residing at [facility]. 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 Has applied for Disability- awaiting a decision. Is on pre-trial probation through [facility]. Enters Drug Court on 12-28-22. Is going to wear an ankle monitoring bracelet for a year. Has forgotten to take her weekly Vitamin D supplementation. Cravings for methamphetamines are fluctuating. Today it is a 3/10. Taking Baclofen for this. States she does feel it helps to decrease her cravings. Anxiety: has been a little higher recently. Attributes to her thinking too much. Has more flashbacks recently. Memories come out of nowhere. Sporadic panic attacks. Depression: mood is up and down. Irritability: not bad Focus/concentration: adequate Sleep: frequent awakenings, less frequent nightmares, falls asleep easily with Seroquel, gets about 8 hours on an average. No anhedonia. Has been painting and writing. Has motivation. Aggressive behaviors: denies Paranoia: a tiny bit here and there about people watching her and talking about her. Risky behaviors: none Hypomanic/manic episodes: had a little manic episode a few days ago that lasted three days. AVH: daily auditory hallucinations. No command hallucinations. Does find comfort in these at times. When they occur at night, they scare her. Has been seeing shadows daily. States the AVH do not interfere with her daily life and feel they are like cheerleaders to her at times. Suicidal ideations/Homicidal ideations: none since the other day when she was filled with a murderous rage after having had flashbacks. Short lived. Resolved. None since. Current stressors: memories and flashbacks, being stuck at [facility]. Feels she would be better off out of [facility] mentally. Is stressed out by her roommates. Is not allowed to go for walks by herself. Feels controlled. States the house has cameras and can tell if anyone leaves or comes. Gets her phone back on 12-29-22. Is mandated to go to [employer] three times a week. Patient states she gets so tired of not being able to do anything outside the Judaism. Current psychotherapy: sees Bee Gordon at this office Previous Visit: 11/26/2022 Patient presents for follow up exam. Last seen on 09-30-22 and continues to take Seroquel. Still residing [facility]. Did leave for two days about a month and admits to using methamphetamines. No use since. Returned to [facility] on her own. States Gabriella (the head of [facility]) forced her to take her [place], that patient decided to stop on her own because she did not feel it was doing anything for her. Has been off of [place] for the past week. Not taking Prazosin consistently but states it was not controlling nightmares at the current dose. 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 Is on probation through [facility]. Continues to take weekly Vitamin D supplementation. Cravings for methamphetamines are at a 5-6/10. Taking Baclofen for this. States she does feel it helps to decrease her cravings. Anxiety: not bad, no panic attacks. Depression: mood fluctuates. Mostly neutral and or good days. Only a few bad days per month. Irritability: has been worse lately and patient is not sure why. Focus/concentration: adequate Sleep: falling asleep easily for the most part. Does get up a few times in the night. Getting about 8 hours of sleep per night. Nightmares nightly. No anhedonia. Motivated most of the time. Aggressive behaviors: none Paranoia: a tiny bit here and there about people watching her. Risky behaviors: none since she left [facility] for two days Hypomanic/manic episodes: has felt manic a few days ago- lasted 2 days. Crashed afterwards. AVH: daily auditory hallucinations. No command hallucinations. Does find comfort in these at times. When they occur at night, they scare her. Has been seeing shadows daily. States the AVH do not interfere with her daily life and feel they are like cheerleaders to her at times. Suicidal ideations: occasionally. Not bad . Has no plan or intent on injuring herself or kill herself. Protective factors: I have stuff to live for, I have my son to live for . Homicidal ideations: denies Current stressors: living at [facility]- wants to leave. States it is super strict. Is not allowed to go for walks. Does get along with the staff and roommates. Current psychotherapy: sees Bee Gordon at this office Current Medications: Outpatient Medications Prior to Visit Medication Sig Dispense Refill ergocalciferol (ERGOCALCIFEROL) 1,250 mcg (50,000 unit) capsule Take 1 (one) capsule (50,000 Units total) by mouth once a week . 12 capsule 0 baclofen (LIORESAL) 20 MG tablet Take 1 (one) tablet (20 mg total) by mouth 3 (three) times a day as needed For cravings/cramping . 90 tablet 1 prazosin (MINIPRESS) 2 MG capsule Take 2 (two) capsules (4 mg total) by mouth nightly . 60 capsule 1 QUEtiapine (SEROQUEL XR) 200 MG 24 hr tablet Take 1 (one) tablet (200 mg total) by mouth nightly . 30 tablet 1 QUEtiapine (SEROQUEL XR) 400 MG 24 hr tablet Take 1 (one) tablet (400 mg total) by mouth nightly . 30 tablet 1 No facility-administered medications prior to visit. Lethality: Denies suicidal or homicidal ideations. Psychiatric ROS: Negative unless noted above. Review of Systems: Constitutional: Denies fever, chills, diaphoresis, malaise Eyes: Denies blurred vision, double vision ENT: Denies nasal congestion, sore throat, ear pain Neurological: Denies headache, photophobia, weakness, numbness CVS: Denies chest pain or palpitations Respiratory: Denies dyspnea or cough Musculoskeletal: Denies joint pain or muscle aches GI: Denies nausea, vomiting, constipation, or diarrhea : Denies urinary urgency, frequency, or burning Integumentary: Denies itching or rash Endocrine: Denies heat/cold intolerance or weight loss/weight gain Physical Exam: General: Alert and oriented to person, place, and time. Is in no acute distress. Well developed, hydrated, and nourished. Appears stated age. Skin: Skin in warm, dry and intact without rashes or lesions. Appropriate color for ethnicity. Nailbeds pink with no cyanosis or clubbing. Head: The head is normocephalic and atraumatic. Eyes: PERRLA Neck: Supple Respiratory: Respirations are non labored. Musculoskeletal: Active ROM in all four extremities. Neurological: Motor function is normal in upper and lower extremities. No gait abnormalities are appreciated. Vitals: 12/17/22 1508 BP: 124/85 BP Location: Left arm Patient Position: Sitting BP Cuff Size: X-large Adult Pulse: 89 SpO2: 97% Weight: 102.1 kg (225 lb) Height: 5' 4 BMI 38.6 Mental Status Evaluation: General Appearance & Behavior: age appropriate, pleasant, cooperative, good eye contact Grooming & Hygiene: neat and clean Psychomotor Activity: no psychomotor abnormalities or muscle atrophy noted Speech: normal rate, rhythym, volume, and spontaneity Flow of Thought: linear and goal directed Thought Associations: Intact Content of Thought: No evidence of SI/HI, auditory hallucinations, visual hallucinations, delusions, and paranoia Mood: fluctuates Affect: mood congruent Insight: intact Judgment: intact Orientation: alert and oriented to person, place, time, and circumstances Memory: intact recent and remote Attention: intact Concentration: intact Language: fluent Fund of Knowledge: estimated average intelligence AIMS exam completed: No abnormal involuntary movements noted Assessment and Plan/Recommendations Diagnosis/Medications/Plan: Alyce was seen today for medication management. 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 Self care activities advised: good sleep hygiene, daily exercise, and healthy eating. Pt advised to seek immediate assistance for any SI/HI or aggressive behaviors. Pt voiced understanding. Continue with psychotherapy with Bee at this office. - QUEtiapine (SEROQUEL XR) 200 MG 24 hr tablet; Take 1 (one) tablet (200 mg total) by mouth nightly . - QUEtiapine (SEROQUEL XR) 400 MG 24 hr tablet; Take 1 (one) tablet (400 mg total) by mouth nightly . PTSD (post-traumatic stress disorder) Less frequent nightmares with increased Prazosin. Continue with Prazosin. - prazosin (MINIPRESS) 2 MG capsule; Take 2 (two) capsules (4 mg total) by mouth nightly . History of methamphetamine use Abstain from all illicit drug use. Use Baclofen for cravings. - baclofen (LIORESAL) 20 MG tablet; Take 1 (one) tablet (20 mg total) by mouth 3 (three) times a day as needed For cravings/cramping . Vitamin D deficiency Advised patient to please take her weekly supplementation as prescribed as she has forgotten to. Follow up in: Four weeks or sooner if needed -Chart reviewed. -OARRS reviewed. - Any available laboratory/imaging studies reviewed. - Past psychiatric history obtained. This patient is being prescribed one antipsychotic. Diagnostic work up including: BMI, blood pressure, hemoglobin A1c or blood glucose, TSH, and lipid panel have been completed in the past year performed within [facility] and available in [facility]. Glucose <126mg/dL, no indication of impaired glucose tolerance or insulin resistance in fasting or nonfasting state. *If the patient has been diagnosed with diabetes, they were made aware of the risk for weight gain, which may result in an increase in glucose/lipids. Diet and exercise is strongly recommended. The patient verbalized understanding of this warning and agrees to continue with plan. 11/26/2022 3:00 PM 12/15/2022 8:50 AM KERRIE-7 KERRIE-7 Score 3 6 11/26/2022 3:00 PM PHQ-9 PHQ-9 Total Score 8 Education: Continue medication as prescribed. Please report any side effects or intolerability of the medication. Report any new or worsening symptoms. Physical health: Maintain good physical health through exercise, adequate sleep, hydration, and well balanced meals. Avoid drug use, excess alcohol consumption, and use of nicotine. Psychotherapy: Talk about your mental health with a professional or other supportive people in your life. Work on social connections and interacting with others. Relaxation: Maintain a peaceful mind through relaxation techniques such as, meditation, mindfulness, yoga, stretching, and deep breathing exercises. Stay positive: Remember that you have things in your life to be thankful for. Gratitude is a way to keep a positive mindset. Journaling your thoughts and feelings on paper can help release the mind of the daily stressors or negative thoughts that may be affecting your mental health. Try to journal 3 things you are thankful for or 3 positives that happened to you each day. Screen time/social media: Please try to limit your screen time of the phone, TV, or computer. Excessive or prolonged socia media can impact your mental health negatively. Spend time outdoors when possible. [place] has natural mood boosting qualities and may help improve feelings of anxiety, stress, and depression. Seek emergent help for any worsening of depression or thoughts of harming self or others. Psychotherapy: Discussed with the patient that I recommended regularly scheduled psychotherapy, specifically dialectical behavioral therapy or cognitive behavioral therapy to further assist with the treatment plan. The goals of treatment would be to identify maladaptive thought and behavior patterns, and build improved coping skills. I have provided the patient with resources and recommendations on where to find a therapist based on their insurance. Recommend aerobic exercise, if physically able to do so. This includes, walking, hiking, running/jogging, cycling, swimming, skiing, or resistance training (upper and lower body). Please strive for aerobic exercise, 5-7 days per week. Increase time as tolerated, for a goal of at least 30-45 minutes per session. Treatment options and alternatives reviewed with patient. Risks, benefits, side effects of all psychiatric medications discussed with patient and informed consent obtained. All questions were answered. Goals: Improve and/or stabilize mood. Improve anxiety. Improve symptoms of depression. Improve sleep. Improve coping skills. Improve interpersonal skills. Prevent psychiatric hospitalization. Chioma Campbell CNP, PMHNP 12/17/2022 3:44 PM documented in this encounter [facility] 12-17-2022 History of Presen t illness Narrative Patient Name: Alyce Orozco [id number] [id number] 1995 DATE OF SERVICE: 12/17/22 START TIME: 2:19pm END TIME: 3:12pm TIME SPENT: 57 minutes spent with patient in face to face, individual session. DIAGNOSIS ICD-10-CM ICD-9-CM 1. Schizoaffective disorder, bipolar type (HCC) F25.0 295.70 2. Post traumatic stress disorder (PTSD) F43.10 309.81 3. History of methamphetamine use F15.91 305.93 DATA Grooming & Hygiene: well groomed and neat General Behavior: pleasant & cooperative Psychomotor Activity: no psychomotor abnormalities Speech: talkative Flow to Thought: logical & goal directed Thought Associations: logical connections Content of Thought: normal Mood: Depressed Affect: normal affect Insight: intact Judgment: fair Orientation: alert and oriented to person, place, time Memory: intact Attention / Concentration: intact The patient reports feeling depressed. She is tired of being isolated in the correction, unable to attend AA, having restrictions on work, and the drama with the other women in the home. She reports not feeling supported in growing. She was excited about drug court, and reports that she is committed to completing a year in the program successfully. She is upset about not being able to live in a different place, but also states that this home may be the best for her at this time. Discussed delusions and hallucinations, depth of insight into reality and non-reality. Challenging cognitive distortions, examined patterns of behavior and how those old survival skills no longer work. Patient is medication compliant, denies SI. ASSESSMENT Patient continues to a need and desire for additional education, support and treatment (aod specifically). Her insight is a strength that supports her progress in treatment. TREATMENT AND PLAN Provided active listening, psycho-education, techniques from CBT and CA, identified and reinforced success, and identified and problem solved barriers. Continue providing weekly individual psychotherapy, take medications as prescribed and attend all follow-ups. Frequency and duration of psychotherapy will be continuously assessed for efficacy and adjusted as indicated. CLIENT RESPONSE/EVALUATION Patient was engaged, insightful, and has made some progress today. INTERACTIVE COMPLEXITY 5. None REVIEW WITH PATIENT: Client educated on working diagnosis and treatment plan. The client participated in the development and review of the ITP using shared decision making and other client centered practices and principles. RECOMMENDATIONS: -Continue medication as prescribed. Please report any side effects or intolerability of the medication. Report any new or worsening symptoms. -Physical health: Maintain good physical health through exercise, adequate sleep, hydration, and well balanced meals. Avoid drug use, excess alcohol consumption, and use of nicotine. -Mental Health: Talk about your mental health with mental health professional or a supportive person or people in your life. Work on social connections and interacting with others. -Relaxation: Maintain a peaceful mind through relaxation techniques such as, meditation, mindfulness, yoga, stretching, sitting quietly for a moment, and deep breathing exercises. -Stay positive: Try to identify one positive thing every day; a smile from someone, a great cup of coffee, a funny video, a pet, and be grateful for that thing. Remember that one negative event does not ruin the day, it's merely a negative moment in a series of many moments throughout the day. -Screen time/social media: Please try to limit your screen time of the phone, TV, or computer. Excessive or prolonged socia media can impact your mental health negatively. -Spend time outdoors when possible. [place] has natural mood boosting qualities and may help decrease feelings of anxiety, stress, and depression. CRISIS MANAGEMENT/SAFETY: Resources provided: Suicide Prevention (national) Hotline 7-287-796-TALK Mental Health Emergency dial 988 Emergency dial 911 Crisis Line ([facility]) [phone] IGOR Gallardo documented in this encounter [facility] 12-10-2022 History of Presen t illness Narrative Patient Name: Alyce Orozco MR #: [id number] : 1995 DATE OF SERVICE: 12/10/22 START TIME: 2:15pm END TIME: 3:15pm TIME SPENT: 60 minutes spent with patient in face to face, individual session. DIAGNOSIS ICD-10-CM ICD-9-CM 1. Post traumatic stress disorder (PTSD) F43.10 309.81 2. Schizoaffective disorder, bipolar type (HCC) F25.0 295.70 3. History of methamphetamine use F15.91 305.93 DATA Grooming & Hygiene: well groomed and neat General Behavior: pleasant & cooperative Psychomotor Activity: no psychomotor abnormalities Speech: talkative and soft Flow to Thought: logical & goal directed Thought Associations: logical connections, tangential connections Content of Thought: normal Mood: Depressed Affect: normal affect Insight: intact Judgment: fair Orientation: alert and oriented to person, place, time Memory: intact Attention / Concentration: intact The client reports that she is depressed in a different way today. She said that her mood has been flat, her lack of activity, weight gain, unhappiness in the home, and ongoing tension with the domestic housekeeper have combined to decrease her mood. The patient is medication compliant. Denies SI. Discussed urge surfing, utilized techniques from CA to gauge stage of change and motivate towards it and assisted patient in examining what is and is not within her control that she can work on to support her in treatment. ASSESSMENT The client is struggling due to lack of outside support, AOD treatment, and activities to keep her busy. These are barriers to her progress in treatment. TREATMENT AND PLAN Provided active listening, psycho-education, techniques from CBT and CA, identified and reinforced success, and identified and problem solved barriers. Continue providing weekly individual psychotherapy, take medications as prescribed and attend all follow-ups. Frequency and duration of psychotherapy will be continuously assessed for efficacy and adjusted as indicated. CLIENT RESPONSE/EVALUATION The patient was engaged, though low today. Progress has been maintained. INTERACTIVE COMPLEXITY 5. None REVIEW WITH PATIENT: Client educated on working diagnosis and treatment plan. The client participated in the development and review of the ITP using shared decision making and other client centered practices and principles. RECOMMENDATIONS: -Continue medication as prescribed. Please report any side effects or intolerability of the medication. Report any new or worsening symptoms. -Physical health: Maintain good physical health through exercise, adequate sleep, hydration, and well balanced meals. Avoid drug use, excess alcohol consumption, and use of nicotine. -Mental Health: Talk about your mental health with mental health professional or a supportive person or people in your life. Work on social connections and interacting with others. -Relaxation: Maintain a peaceful mind through relaxation techniques such as, meditation, mindfulness, yoga, stretching, sitting quietly for a moment, and deep breathing exercises. -Stay positive: Try to identify one positive thing every day; a smile from someone, a great cup of coffee, a funny video, a pet, and be grateful for that thing. Remember that one negative event does not ruin the day, it's merely a negative moment in a series of many moments throughout the day. -Screen time/social media: Please try to limit your screen time of the phone, TV, or computer. Excessive or prolonged socia media can impact your mental health negatively. -Spend time outdoors when possible. [place] has natural mood boosting qualities and may help decrease feelings of anxiety, stress, and depression. CRISIS MANAGEMENT/SAFETY: Resources provided: Suicide Prevention ([facility]) Hotline 5-873-926-BCJQ Mental Health Emergency dial 988 Emergency dial 911 Crisis Line ([facility]) [phone] IGOR Gallardo documented in this encounter [facility] 12-03-2022 History of Presen t illness Narrative Patient Name: Alyce Orozco MR #: [id number] : 1995 DATE OF SERVICE: 12/03/22 START TIME: 2:05pm END TIME: 2:59pm TIME SPENT: 54 minutes spent with patient in face to face, individual session. DIAGNOSIS ICD-10-CM ICD-9-CM 1. Schizoaffective disorder, bipolar type (HCC) F25.0 295.70 2. PTSD (post-traumatic stress disorder) F43.10 309.81 3. History of methamphetamine use F15.91 305.93 DATA Grooming & Hygiene: well groomed and casually dressed General Behavior: pleasant & cooperative Psychomotor Activity: no psychomotor abnormalities Speech: talkative and soft Flow to Thought: logical & goal directed Thought Associations: logical connections Content of Thought: normal Mood: [place], I'm in a weird space Affect: flat affect Insight: intact Judgment: fair Orientation: alert and oriented to person, place, time Memory: intact Attention / Concentration: intact The client reports that she is in a weird head space right now. She left [employer] again, used, and tried to move in with her sober friends but she started experiencing some paranoia that things on the TV were about her, that her friends were talking about her or directing things at her. The client returned to [facility] to get some clothes, reports that essentially she had a mini breakdown, and asked if she could stay there again. She tested positive for meth, but Gabriella allowed her stay. Reported the dirty urine screen to her PO. The PO informed the client that this was her last chance. The client goes in front of the logistic specialist tomorrow to begin Drug Court. The client brought her notebooks that she has used to combine multiple other writings and journals into. She shared that once she sobered up she realized that she shouldn't have gone back to [facility]. She is now without a phone for a month, and cannot go out or do anything other than their groups/yarsanism for a month. ASSESSMENT The client presents with good insight into her most recent incident, though verbalizes that at the time of using she was not thinking clearly. She shared that her delusions this time were about her failing some requirement, the end of the world, being blamed for murder, and everyone she passed on the street was talking about her. She reports that it seems that when she gets high now she is not having delusions but she is really shifting into a different dimension. TREATMENT AND PLAN Provided active listening, psycho-education, techniques from CBT and CA, identified and reinforced success, and identified and problem solved barriers. Continue providing weekly individual psychotherapy, take medications as prescribed and attend all follow-ups. Frequency and duration of psychotherapy will be continuously assessed for efficacy and adjusted as indicated. CLIENT RESPONSE/EVALUATION The client was engaged, though is was observed that she was less talkative and more pensive than usual. She is making progress overall regardless of recent regression. INTERACTIVE COMPLEXITY 5. None REVIEW WITH PATIENT: Client educated on working diagnosis and treatment plan. The client participated in the development and review of the ITP using shared decision making and other client centered practices and principles. RECOMMENDATIONS: -Continue medication as prescribed. Please report any side effects or intolerability of the medication. Report any new or worsening symptoms. -Physical health: Maintain good physical health through exercise, adequate sleep, hydration, and well balanced meals. Avoid drug use, excess alcohol consumption, and use of nicotine. -Mental Health: Talk about your mental health with mental health professional or a supportive person or people in your life. Work on social connections and interacting with others. -Relaxation: Maintain a peaceful mind through relaxation techniques such as, meditation, mindfulness, yoga, stretching, sitting quietly for a moment, and deep breathing exercises. -Stay positive: Try to identify one positive thing every day; a smile from someone, a great cup of coffee, a funny video, a pet, and be grateful for that thing. Remember that one negative event does not ruin the day, it's merely a negative moment in a series of many moments throughout the day. -Screen time/social media: Please try to limit your screen time of the phone, TV, or computer. Excessive or prolonged socia media can impact your mental health negatively. -Spend time outdoors when possible. [place] has natural mood boosting qualities and may help decrease feelings of anxiety, stress, and depression. CRISIS MANAGEMENT/SAFETY: Resources provided: Suicide Prevention ([facility]) Hotline 8-321-210-NJYL Mental Health Emergency dial 988 Emergency dial 911 Crisis Line [facility]) [phone] IGOR Gallardo documented in this encounter [facility] 11-26-2022 History of Presen t illness Narrative Behavioral Health Outpatient Progress Note Patient Name: Alyce Orozco MR #: [id number] : 1995 Chief Complaint: Medication and symptom review/management Interval History: 11/26/2022 Patient presents for follow up exam. Last seen on 09-30-22 and continues to take Seroquel. Still residing [facility]. Did leave for two days about a month and admits to using methamphetamines. No use since. Returned to [facility] on her own. States Gabriella (the head of [facility]) forced her to take her [place], that patient decided to stop on her own because she did not feel it was doing anything for her. Has been off of [place] for the past week. Not taking Prazosin consistently but states it was not controlling nightmares at the current dose. 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 Is on probation through [facility]. Continues to take weekly Vitamin D supplementation. Cravings for methamphetamines are at a 5-6/10. Taking Baclofen for this. States she does feel it helps to decrease her cravings. Anxiety: not bad, no panic attacks. Depression: mood fluctuates. Mostly neutral and or good days. Only a few bad days per month. Irritability: has been worse lately and patient is not sure why. Focus/concentration: adequate Sleep: falling asleep easily for the most part. Does get up a few times in the night. Getting about 8 hours of sleep per night. Nightmares nightly. No anhedonia. Motivated most of the time. Aggressive behaviors: none Paranoia: a tiny bit here and there about people watching her. Risky behaviors: none since she left [facility] for two days Hypomanic/manic episodes: has felt manic a few days ago- lasted 2 days. Crashed afterwards. AVH: daily auditory hallucinations. No command hallucinations. Does find comfort in these at times. When they occur at night, they scare her. Has been seeing shadows daily. States the AVH do not interfere with her daily life and feel they are like cheerleaders to her at times. Suicidal ideations: occasionally. Not bad . Has no plan or intent on injuring herself or kill herself. Protective factors: I have stuff to live for, I have my son to live for . Homicidal ideations: denies Current stressors: living at [facility]- wants to leave. States it is super strict. Is not allowed to go for walks. Does get along with the staff and roommates. Current psychotherapy: sees Bee Gordon at this office Previous Visit: 09/30/2022 Patient presents for follow up exam. Continues to live at [facility]. At previous visit on 09-10-22, Seroquel was changed to XR formulation and dosed at night as morning dosing was making patient too tired. Feels this has been beneficial to her. Continues Baclofen which was increased at previous visit due to continued cravings. Cravings are a 3-4/10 at this time. Quit [place] a couple of weeks ago- unsure why she did this. States she was not able to emotionally feel things while on [place] but can since she has been off of it. Taking Prazosin as recently prescribed due to nightmares. States she was not given her Vitamin D supplementation. 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 Anxiety: pretty well-controlled. No panic attacks. Depression: has been more elevated. Fluctuating a bit. Was manic last week. Does not feel depressed. Having more good days than bad days. Irritability: low level. Focus/concentration: adequate Sleep: falls asleep easily. Wakes up 1-2 times a night. Mind does not race. Nightmares nightly- Prazosin has not helped with this. No anhedonia. Has motivation. Aggressive behaviors: none Paranoia: comes and goes. Feels as if people are talking about her or are watching her. Risky behaviors: Hypomanic/manic episodes: felt manic last week and lasted 4-5 days. AVH: daily auditory hallucinations. No command hallucinations. Does find comfort in these. Has been seeing unfamiliar people daily. They are there for a moment and they are gone . States the AVH do not interfere with her daily life and feel they are like cheerleaders to her. Suicidal ideations: occasionally. Not serious . Has no plan or intent on injuring herself or kill herself. Protective factors: I have a lot of good going on . Homicidal ideations: denies Current stressors: has good stress related to new job. Decision making is stressful to her. Has a charge for aggravated possession and child endangerment charge- has an attorney lawyer- is going to pretrial probation- has to do drug tests every other week. Current psychotherapy: sees Bee Gordon at this office weekly Current Medications: Outpatient Medications Prior to Visit Medication Sig Dispense Refill ergocalciferol (ERGOCALCIFEROL) 1,250 mcg (50,000 unit) capsule Take 1 (one) capsule (50,000 Units total) by mouth once a week . 12 capsule 0 baclofen (LIORESAL) 20 MG tablet Take 1 (one) tablet (20 mg total) by mouth 3 (three) times a day as needed For cravings/cramping . 90 tablet 0 prazosin (MINIPRESS) 2 MG capsule Take 1 (one) capsule (2 mg total) by mouth nightly . 30 capsule 0 QUEtiapine (SEROQUEL XR) 400 MG 24 hr tablet Take 1 (one) tablet (400 mg total) by mouth nightly . 30 tablet 0 No facility-administered medications prior to visit. Lethality: Denies suicidal or homicidal ideations. Psychiatric ROS: Negative unless noted above. Review of Systems: Constitutional: Denies fever, chills, diaphoresis, malaise Eyes: Denies blurred vision, double vision ENT: Denies nasal congestion, sore throat, ear pain Neurological: Denies headache, photophobia, weakness, numbness CVS: Denies chest pain or palpitations Respiratory: Denies dyspnea or cough Musculoskeletal: Denies joint pain or muscle aches GI: Denies nausea, vomiting, constipation, or diarrhea : Denies urinary urgency, frequency, or burning Integumentary: Denies itching or rash Endocrine: Denies heat/cold intolerance or weight loss/weight gain Physical Exam: General: Alert and oriented to person, place, and time. Is in no acute distress. Well developed, hydrated, and nourished. Appears stated age. Skin: Skin in warm, dry and intact without rashes or lesions. Appropriate color for ethnicity. Nailbeds pink with no cyanosis or clubbing. Head: The head is normocephalic and atraumatic. Eyes: PERRLA Neck: Supple Respiratory: Respirations are non labored. Musculoskeletal: Active ROM in all four extremities. Neurological: Motor function is normal in upper and lower extremities. No gait abnormalities are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 [address] [place] [address] [phone] Consulting Physician Addiction Medicine 07/06/22 Procurement Cost Coordinator Relationship Specialty Start Date End Date No, Physician [facility] PCP - General 03/18/22 Corbin Curry MD [address] [place] [phone] Consulting Physician Addiction Medicine 07/06/22 Procurement Cost Coordinator Relationship Specialty Start Date End Date No, Physician [facility] PCP - General 03/18/22 Corbin Curry MD [address] [place] [address] [phone] Consulting Physician Addiction Medicine 07/06/22 Joan Aquino Community Health Worker 09/30/22 Procurement Cost Coordinator Relationship Specialty Start Date End Date No, Physician [facility] PCP - General 03/18/22 Corbin Curry MD [address] [place] [address] 61773 Consulting Physician Addiction Medicine 07/06/22 Joan Aquino Community Health Worker 09/30/22 Procurement Cost Coordinator Relationship Specialty Start Date End Date No, Physician [facility] PCP - General 03/18/22 Corbin Curry MD [address] [place] [address] [phone] Consulting Physician Addiction Medicine 07/06/22 Procurement Cost Coordinator Relationship Specialty Start Date End Date No, Physician [facility] PCP - General 03/18/22 Corbin Curry MD [address] [place] [address] 32339 Consulting Physician Addiction Medicine 07/06/22 Joan Aquino Community Health Worker 09/30/22 Procurement Cost Coordinator Relationship Specialty Start Date End Date No, Physician [facility] PCP - General 03/18/22 Corbin Curry MD [address] [place] [address] [phone] Consulting Physician Addiction Medicine 07/06/22 Joan Aquino Community Health Worker 09/30/22 Procurement Cost Coordinator Relationship Specialty Start Date End Date No, Physician [facility] PCP - General 03/18/22 Corbin Curry MD [address] [place] [address] 60186 Consulting Physician Addiction Medicine 07/06/22 Procurement Cost Coordinator Relationship Specialty Start Date End Date No, Physician [facility] PCP - General 03/18/22 Corbin Curry MD [address] [place] [address] [phone] Consulting Physician Addiction Medicine 07/06/22 Joan Aquino Community Health Worker 09/30/22 Procurement Cost Coordinator Relationship Specialty Start Date End Date No, Physician [facility] PCP - General 03/18/22 Corbin Curry MD [address] [place] [address] [phone] Consulting Physician Addiction Medicine 07/06/22 Joan Aquino Community Health Worker 09/30/22 Procurement Cost Coordinator Relationship Specialty Start Date End Date No, Physician [facility] PCP - General 03/18/22 Corbin Curry MD [address] [place] [address] [phone] Consulting Physician Addiction Medicine 07/06/22 Joan Aquino Community Health Worker 09/30/22 Procurement Cost Coordinator Relationship Specialty Start Date End Date No, Physician [facility] PCP - General 03/18/22 Corbin Curry MD [address] [place] [address] [phone] Consulting Physician Addiction Medicine 07/06/22 Joan Aquino Community Health Worker 09/30/22 Procurement Cost Coordinator Relationship Specialty Start Date End Date No, Physician [facility] PCP - General 03/18/22 Corbin Curry MD [address] [place] [address] [phone] Consulting Physician Addiction Medicine 07/06/22 Joan Aquino Community Health Worker 09/30/22 Procurement Cost Coordinator Relationship Specialty Start Date End Date Troy Jones CNP [address] [place] [address] [phone] PCP - General Emergency Medicine 12/15/22 Corbin Curry MD [address] [place] [address] [phone] Consulting Physician Addiction Medicine 07/06/22 Joan Aquino Community Health Worker 09/30/22 Procurement Cost Coordinator Relationship Specialty Start Date End Date Troy Jones CNP [address] [place] [facility] [place] [address] PCP - General Emergency Medicine 12/15/22 Corbin Curry MD [address] [facility] [place] [address] Consulting Physician Addiction Medicine 07/06/22 Joan Aquino Community Health Worker 09/30/22 Procurement Cost Coordinator Relationship Specialty Start Date End Date Troy Jones CNP [address] [place] [address] 31696 PCP - General Emergency Medicine 12/15/22 Corbin Curry MD [address] [place] [address] [phone] Consulting Physician Addiction Medicine 07/06/22 Joan Aquino Community Health Worker 09/30/22 Procurement Cost Coordinator Relationship Specialty Start Date End Date Troy Jones CNP [address] [place] [phone] PCP - General Emergency Medicine 12/15/22 Corbin Curry MD [address] [facility] [place] [address] Consulting Physician Addiction Medicine 07/06/22 Joan Aquino Community Health Worker 09/30/22 Procurement Cost Coordinator Relationship Specialty Start Date End Date Troy Jones CNP [address] [facility] [place] [address] PCP - General Emergency Medicine 12/15/22 Corbin Curry MD [address] [facility] [place] [address] Consulting Physician Addiction Medicine 07/06/22 Joan Aquino Community Health Worker 09/30/22 Procurement Cost Coordinator Relationship Specialty Start Date End Date No, Physician [facility] PCP - General 03/18/22 12/14/22 Corbin Curry MD [address] [place] [address] 26412 Consulting Physician Addiction Medicine 07/06/22 Joan Aquino Community Health Worker 09/30/22 Procurement Cost Coordinator Relationship Specialty Start Date End Date No, Physician [facility] PCP - General 03/18/22 12/14/22 Corbin Curry MD [address] [place] [address] [phone] Consulting Physician Addiction Medicine 07/06/22 Joan Aquino Community Health Worker 09/30/22 Procurement Cost Coordinator Relationship Specialty Start Date End Date Troy Jones CNP [address] [place] [phone] PCP - General Emergency Medicine 12/15/22 Corbin Curry MD [address] [place] [address] [phone] Consulting Physician Addiction Medicine 07/06/22 Joan Aquino Community Health Worker 09/30/22 Procurement Cost Coordinator Relationship Specialty Start Date End Date Troy Jones CNP [address] [place] [address] 36911 PCP - General Emergency Medicine 12/15/22 Corbin Curry MD [address] [facility] [place] [address] Consulting Physician Addiction Medicine 07/06/22 Joan Aquino Community Health Worker 09/30/22 Procurement Cost Coordinator Relationship Specialty Start Date End Date Martín Jonesaki Mendoza, NAPOLEON [address] [facility] [place] [address] PCP - General Emergency Medicine 12/15/22 Corbin Curry MD [address] [place] [address] 56719 Consulting Physician Addiction Medicine 07/06/22 Joan Aquino Community Health Worker 09/30/22 Procurement Cost Coordinator Relationship Specialty Start Date End Date HermilaTroy CNP [address] [place] [address] PCP - General Emergency Medicine 12/15/22 Corbin Curry MD [address] [place] [address] [phone] Consulting Physician Addiction Medicine 07/06/22 Joan Aquino Community Health Worker 09/30/22 FOR RECORDS PERTAINING TO PATIENTS WHO ARE OR HAVE BEEN ENROLLED IN A CHEMICAL DEPENDENCY/SUBSTANCEABUSE PROGRAM, SOME INFORMATION MAY BE OMITTED. This clinical summary was aggregated from multiple sources. Caution should be exercised in using it in the provision of clinical care. This summary normalizes information from multiple sources, and as a consequence, information in this document may materially change the coding, format and clinical context of patient data. In addition, data may be omitted in some cases. CLINICAL DECISIONS SHOULD BE BASED ON THE PRIMARY CLINICAL RECORDS. [facility] [email or web address] [facility]. provides no warranty or guarantee of the accuracy or completeness of information in this document.
--- NOTE | 2023-05-07 14:56 | CM.ED ---
Social Work Crisis called SW. Patient assessed by crisis and crisis is concerned for patient's safety. Crisis is requesting doctor's review and opinion as they not sure if hospitalization would be beneficial. SW collaborated with jessie and Dr. Starks and psychiatric placement presents as the best course of action. SW to see patient to discuss placement. Crisis will fax psychiatric assessment to ED when completed and patient can then be referred for placement. Plan: Psychiatric placement. Cris Gonzales SANDWICH AND DRINK CART OPERATOR, METAL EXPEDITER
[2023-05-07 15:14] LABS: Amphetamine Urine VISTA NEGATIVE (<1000 ng/mL); Barbiturate Urine VISTA NEGATIVE (< 200 ng/mL); Benzodiazepine Urine VISTA NEGATIVE (< 200 ng/mL); Cocaine Urine VISTA NEGATIVE (< 300 ng/mL); Ecstacy Urine VISTA POSITIVE (< 500 ng/mL); Methadone Urine VISTA NEGATIVE (< 300 ng/mL); PCP Urine VISTA NEGATIVE (< 25 ng/mL); THC Urine VISTA NEGATIVE (< 50 ng/mL); Vista UDS pH Range 4
--- NOTE | 2023-05-07 17:43 | ED.RN ---
called report to RN at [facility] at 0120. accepted to the [facility].
[2023-05-07 17:54] VITALS: BP 123/83; PULSE 63; RESP 16; TEMP 36.7; O2SAT 96
--- NOTE | 2023-05-07 19:59 | CM.ED ---
Social Work SW introduced self and role to patient. SW answered questions patient had regarding placement. SW gave patient a brochure about psychiatric facility due to her concerns and feeling uncomfortable with psychiatric hospitals. Pt also concerned about [facility] being aware of her location. SW called [facility] treatment navigator and navigator will notify [facility] residential program. Pt concerned about getting home medications due to not being able to sleep without them. Nursing notified. Cris Gonzales SCARF AND ANNEAL OPERATOR, DEPORTATION EXAMINER
--- NOTE | 2023-05-07 21:23 | ED.RN ---
SPOKE WITH SUSANNA WITH PHYSICIANS REGARDING LONG ETA. STATED THEY OUTSOURCED TO [facility], WHO DOES NOT HAVE ANY AVAILABLE CREWS FOR LONG DISTANCE PSYCH. [facility] STATES CANNOT DUE TO TIME OF NIGHT AND DISTANCE AND BEING PSYCH.
[2023-05-07] MEDS: QUEtiapine 100 MG Tablet 200 MG PO (21:49)
[2023-05-07] MEDS: Benztropine 2 MG Tablet PO (21:50)
[2023-05-07 21:51] VITALS: BP 124/83; PULSE 79; RESP 16; O2SAT 100
[2023-05-08 07:17] VITALS: BP 113/79; PULSE 87; RESP 16; TEMP 36.9; O2SAT 99
[2023-05-08 07:18] VITALS: BP 113/79; PULSE 87; RESP 16; TEMP 36.9; O2SAT 99
--- NOTE | 2023-05-08 07:27 | ED.RN ---
attempted to call report to marija vera of [facility], no one available at this time to take call.
== END 2023-05-08 07:31 ==
PROVIDERS: Emergency Provider Emergency Medicine; Visit Provider Emergency Medicine
DX: R45.851 Suicidal ideations (principal); R44.0 Auditory hallucinations; F17.210 Nicotine dependence, cigarettes, uncomplicated; F17.290 Nicotine dependence, other tobacco product, uncomplicated; F41.9 Anxiety disorder, unspecified; F32.A Depression, unspecified; Z79.899 Other long term (current) drug therapy
CPT/HCPCS: 80048; 80307; 80320; 84703; 85025; 87426; 99285; G0480